=== PATIENT | female | born 1965 | race Caucasian/White ===

== ENCOUNTER → 2020-01-11 | Outpatient (CLI) | payer BC | LOC: M.LAB 10:20 | PROVIDERS: ATTEND Orthopaedic Surgery | DX: Z01.812 Encounter for preprocedural laboratory examination (principal); Z20.828 Contact with and (suspected) exposure to other viral communicable diseases ==

== ENCOUNTER → 2020-01-18 | Outpatient (CLI) | payer BC | LOC: M.LAB 10:10 | PROVIDERS: ATTEND Orthopaedic Surgery | DX: Z01.812 Encounter for preprocedural laboratory examination (principal); Z20.828 Contact with and (suspected) exposure to other viral communicable diseases ==

== ENCOUNTER 2020-12-01 05:58 | Observation (INO) | payer BC ==
[~2020-12-01] VITALS: Ht 157.5 cm; Wt 100.6 kg
--- NOTE | ~2020-12-01 | OP ---
[facility] [address] [place] [address] OPERATIVE REPORT Name: SHERICE MICHELE Room: [address] Marylou Phillips#: [id number] Admission: 12/01/20 Attend Phys: Shan Huerta Discharge: 12/02/20 Date of : 61 Report #: [id number] THIS REPORT FOR: cc: Rohith Gamboa MD, Dean L. MD Patterson,Shan Garcia MD ~ DATE OF SURGERY: 12/01/2020 PREOPERATIVE DIAGNOSIS: Hiatal hernia with severe gastroesophageal reflux disease. POSTOPERATIVE DIAGNOSIS: Hiatal hernia with severe gastroesophageal reflux disease. OPERATION: Laparoscopic repair of hiatal hernia without mesh implantation with partial fundoplication. SURGEON: Shan Huerta MD ANESTHESIA: General. ESTIMATED BLOOD LOSS: Minimal. SPECIMENS: None. DESCRIPTION OF PROCEDURE: After informed consent was obtained, the patient was brought to the operating room and placed supine. SCDs were placed and working, preoperative antibiotics were administered, general anesthesia was induced. The abdomen was prepped and draped in the usual sterile fashion. A 5 mm incision was made in the left upper quadrant. A 5 mm trocar was placed under direct vision. Then under direct vision, I placed three more 5 mm trocars across the abdomen approximately 8 cm apart and approximately 5 cm above the umbilicus. The patient was placed in the reverse Trendelenburg position. A Rosanna retractor was inserted in the epigastrium. The liver was retracted anteriorly and superiorly. This allowed visualization of the hiatus. The pars flaccida was incised. Cautery dissection was made up to the right bety. The right bety was identified. The left bety was identified. The hernia sac was moderate in size. This was all reduced anteriorly and posteriorly. A Bob drain was placed around the distal esophagus. The stomach was then grasped and retracted medially. I ligated the short gastric vessels using the LigaSure device. This allowed for floppy movement of the fundus. Cruroplasty was then performed. This required two 2-0 Ethibond sutures in a [id number] fashion. This closed the hiatus nicely[place] [address] OPERATIVE REPORT Name: MICHELESHERICE Room: [address] Marylou Phillips#: [id number] Admission: 12/01/20 Attend Phys: Shan Huerta Discharge: 12/02/20 Date of : 61 Report #: [id number] The fundus was then brought posteriorly around the distal esophagus. A 270-degree partial fundoplication was performed. This was done by suturing the fundus to the esophagus in 270-degree fashion. Two sutures were placed on each side of the esophagus. [place] drain was removed. The liver was then placed back into its anatomic position. The ports were removed under direct vision. The skin was closed with 4-0 Monocryl. Incisions were dressed with Steri-Strips. COMPLICATIONS: None. DISPOSITION: The patient was taken to recovery in satisfactory condition. By: [id number] Huerta MD /nt
[2020-12-01] MEDS ORDERED: LISINOPRIL5 MG PO (06:39)
[2020-12-01] MEDS ORDERED: PEPCID40 MG PO (06:40)
[2020-12-01 06:43] LABS: HEMATOCRIT 40.8 % (37.0-47.0); HEMOGLOBIN 13.8 gm/dL (12.0-15.0); MCH 27.4 pg (26.0-34.0); MCHC 33.9 g/dL (28.0-37.0); MCV 80.9 fL (80.0-100.0); MPV 7.2 fl. (7.2-11.1); RBC 5.04 mil/uL (4.20-5.00); RDW-CV 13.9 % (10.5-14.5); WBC 6.8 thou/uL (4.0-11.0)
[2020-12-01 06:57] LABS: CALCIUM 8.7 mg/dL (8.5-10.1); CREATININE 0.9 mg/dL (0.6-1.3); POTASSIUM 4.1 mmol/L (3.5-5.1)
[2020-12-01] MEDS ORDERED: ALL DAY ALLERGY10 MG PO (07:33)
[2020-12-01] MEDS ORDERED: CELEXA20 MG PO (07:33)
[2020-12-01] MEDS ORDERED: SINGULAIR 10 MG10 M1 PO (07:34)
[2020-12-01] MEDS ORDERED: OMEPRAZOLE40 MG PO (07:35)
[2020-12-01] MEDS ORDERED: CARAFATE 1 GM TA1 GM PO (07:37)
[2020-12-01 13:35] VITALS: BP 111/52
--- NOTE | 2020-12-01 14:23 | EKG ---
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
[2020-12-01 16:03] VITALS: BP 117/64
[2020-12-01 20:00] VITALS: BP 121/72
[2020-12-02 04:00] VITALS: BP 138/82
[2020-12-02 08:00] VITALS: BP 127/66
[2020-12-02] MEDS ORDERED: NORCO5 PO (10:23)
[2020-12-02] MEDS ORDERED: ZOFRAN4 MG PO (10:35)
[2020-12-02 10:49] VITALS: BP 127/66
[2020-12-02 11:57] VITALS: BP 127/66
== END 2020-12-02 11:30 | disposition home or self-care (01) ==
LOC: M.SUR 05:58 → M.TBA 13:15 → M.3W 13:37 → M.SUR 16:27 → M.3W 12-02 11:30
PROVIDERS: ADMIT Surgery; ATTEND Surgery
DX: K44.9 Diaphragmatic hernia without obstruction or gangrene (principal); Z20.822 Contact with and (suspected) exposure to COVID-19; K21.9 Gastro-esophageal reflux disease without esophagitis; Z79.899 Other long term (current) drug therapy